=== PATIENT | female | born 1945 | race American Indian/Alaskan Native ===

== ENCOUNTER 2020-07-14 07:38 | Inpatient (IN) | payer OTHER, MEDICARE ==
--- NOTE | 2020-07-14 08:50 | XRay Report ---
CHEST 2 VIEWS INDICATION: SOB, chills/fever. COMPARISON: None FINDINGS: Support devices: None. Heart: Within normal limits. Lungs/pleura: Subtle focal bilateral airspace opacities are identified concerning for atypical pneumo glenroy or viral infection. No consolidation, pleural effusion or pneumothorax. Additional findings: None. IMPRESSION: Subtle bilateral airspace opacities as described. Signer Name: Davi Sanchez Jr, MD Signed: 07/14/2020 8:45 AM Workstation Name: [id number]
--- NOTE | 2020-07-14 09:05 | Emergency Department Report ---
ED General Adult HPI - General Chief complaint: Nausea/Vomiting/Diarrhea Stated complaint: DIARRHEA Time Seen by Provider: 07/14/20 08:53 Source: patient Mode of arrival: Ambulatory Limitations: No Limitations - History of Present Illness Initial comments: 74-year-old female with history of hypertension, diabetes, congestive heart failure presenting with chief complaint of a mild cough, shortness of breath especially with exertion, myalgias, loss of taste/smell, gradual onset 4 days ago after a known exposure to COVID-19. She denies chest pain, abdominal pain. She does report that she feels a little bit weak overall that she has attributed to the diarrhea that she is having. Denies any nausea or vomiting today but states she did have 1 day where she vomited a couple times. States that the cough is only slight. Symptoms are moderate in nature, no alleviating or exacerbating factors. - Related Data Allergies Allergy/AdvReac Type Severity Reaction Status Date / Time No Known Allergies Allergy Unverified 07/14/20 07:59 ED Review of Systems ROS: Stated complaint: DIARRHEA Other details as noted in HPI Comment: All other systems reviewed and negative Constitutional: see HPI. denies: fever ENT: as per HPI Respiratory: see HPI Gastrointestinal: as per HPI ED Past Medical Hx - Past Medical History Previous Medical History?: Yes Hx Hypertension: Yes Hx Congestive Heart Failure: Yes Hx Diabetes: Yes Additional medical history: Glaucoma - Social History Smoking Status: Never Smoker Substance Use Type: None ED Physical Exam - General Limitations: No Limitations General appearance: alert, in no apparent distress - Head Head exam: Present: atraumatic, normocephalic - Eye Eye exam: Present: normal appearance - ENT ENT exam: Present: mucous membranes moist - Neck Neck exam: Present: normal inspection - Respiratory Respiratory exam: Present: normal lung sounds bilaterally. Absent: respiratory distress, wheezes - Cardiovascular Cardiovascular Exam: Present: regular rate, normal rhythm. Absent: systolic murmur, diastolic murmur, rubs, gallop - GI/Abdominal GI/Abdominal exam: Present: soft, normal bowel sounds. Absent: distended, tenderness - Extremities Exam Extremities exam: Present: normal inspection - Back Exam Back exam: Present: normal inspection - Neurological Exam Neurological exam: Present: alert, oriented X3 - Psychiatric Psychiatric exam: Present: normal affect, normal mood - Skin Skin exam: Present: warm, dry, intact, normal color. Absent: rash ED Course Vital Signs 07/14/20 07/14/20 07:57 11:44 Temperature 98.9 F Pulse Rate 82 Respiratory 24 18 Rate Blood Pressure 150/76 O2 Sat by Pulse 92 97 Oximetry ED Medical Decision Making - Lab Data Result diagrams: 07/14/20 09:32 07/14/20 09:32 - Radiology Data Radiology results: report reviewed Faint bilateral infiltrates on chest x-ray - Medical Decision Making Patient presenting with symptoms of COVID-19 after known exposure including a mild cough, shortness of breath, diarrhea, loss of taste and smell. On exam she is well-appearing and in no distress, no increased work of breathing, heart sounds are normal, lungs are clear, abdomen benign, no significant lower extremity edema. Documented pulse ox in triage is 92%. We will recheck this and obtain ambulatory pulse ox to determine appropriate treatment. Chest x-ray was obtained showing mild bilateral infiltrates consistent with COVID-19 pneumonia. O2 does not go above 92% at rest, does desaturate into the upper 80s with ambulation. Will admit to internal medicine service, Dr. Gilbert - Differential Diagnosis Viral syndrome including COVID-19, pneumonia, respiratory failure Critical care attestation.: If time is entered above; I have spent that time in minutes in the direct care of this critically ill patient, excluding procedure time. ED Disposition Clinical Impression: Suspected COVID-19 virus infection, Hypoxia Disposition: OP ADMIT IP TO THIS HOSP Is pt being admited?: Yes Condition: Stable Referrals: PRIMARY CARE, [Referring] - 3-5 Days Time of Disposition: 11:54
[2020-07-14] MEDS ORDERED: cefTRIAXone/NS 1 GM/50 ML 1 GM/50 ML BAG IV ONE (09:16)
[2020-07-14] MEDS ORDERED: AZITHROMYCIN 500 MG in SODIUM CHLORIDE 0.9% 250ML 250 ML IV ONE (09:30)
[2020-07-14 11:11] LABS: Alanine Aminotransferase 70 units/L (7-56); BUN/Creatinine Ratio 12; Blood Urea Nitrogen 11 mg/dL (7-17); Calcium 10.1 mg/dL (8.4-10.2); Hemolysis Index 2
[2020-07-14 11:32] LABS: ABG Base Excess -2.3 mmol/L (-2.0-3.0); ABG Methemoglobin 0.5 % (0.0-1.5); ABG Oxygen Saturation 92.9 % (95.0-99.0); ABG PCO2 31.9 mm Hg; ABG PH 7.436 pH Units (7.350-7.450); ABG PO2 60.4 mm Hg (80.0-90.0)
[2020-07-14 11:35] LABS: Erythrocyte Sedimentation Rate 58 mm/Hr (0-20)
[2020-07-14 11:41] LABS: Basophils % (Auto) 0.4 % (0.0-1.8); Eosinophils % (Auto) 0.2 % (0.0-4.3); Hematocrit 39.5 % (30.3-42.9); Hemoglobin 13.6 gm/dl (10.1-14.3); Lymphocytes # (Auto) 0.9 K/mm3 (1.2-5.4); Lymphocytes % (Auto) 14.1 % (13.4-35.0); Mean Corpuscular HGB Conc 34 % (30-34); Mean Corpuscular Volume 82 fl (79-97); Monocytes # (Auto) 0.6 K/mm3 (0.0-0.8); Platelet Count 276 K/mm3 (140-440); Red Blood Count 4.83 M/mm3 (3.65-5.03); Red Cell Distribution Width 16.6 % (13.2-15.2)
--- NOTE | 2020-07-14 11:54 | History and Physical Report ---
History of Present Illness Chief complaint: i cant breathe History of present illness: 74 YO Female with Obesity Hypoventilation Syndrome, HTN, DM, CHF presents to ED for evaluation. Patient states that she has "not been feeling well" for the past 1 week with persistently worsening symptoms over the past 4 days. Patient states that she has experienced subjective fever, dry cough, shortness of breath, decreased exercise tolerance, nausea, multiple loose stools, loss of sense of smell, loss of sense of taste, fatigue, malaise, body aches, muscle aches. Patient transported to [facility] via private vehicle for further care and evaluation of the aforementioned symptoms. Patient seen and evaluated in the emergency department. All lab and imaging studies reviewed. Patient found to have a fever to 101.1 F, as well as a pulse oximetry of 87% with exertion on room air which is consistent with acute hypoxemic respiratory failure, tachycardia with heart rate of 128, and tachypneic with respiratory rate of 32. Patient underwent chest x-ray which revealed bilateral pneumonia. Patient admitted to medical floor and initiated on pneumonia protocol, sepsis protocol, as well as coronavirus protocol. Coronavirus PCR ordered in the emergency department and is pending at time of admission. Patient acknowledges subjective fever, but denies chest pain, palpitation, skin rash, recent ill contacts, trauma. Pt acknowledges known exposure to COVID-19 4 days ago. No medication listed at time of admission. No prior admission for review. Advanced care planning conducted in ED. Past History Past Medical History: diabetes, heart failure, hypertension Past Surgical History: No surgical history, Other (Reviewed) Social history: single. denies: smoking, alcohol abuse, prescription drug abuse Family history: diabetes, hypertension Medications and Allergies Allergies Allergy/AdvReac Type Severity Reaction Status Date / Time No Known Allergies Allergy Unverified 07/14/20 07:59 Review of Systems Constitutional: fever, fatigue, weakness, malaise, no weight loss, no chills Ears, nose, mouth and throat: no ear pain, no ear discharge, no tinnitis, no decreased hearing, no nose pain, no nasal congestion Breasts: no change in shape, no swelling, no mass Cardiovascular: no chest pain, no orthopnea, no palpitations, no rapid/irregular heart beat Respiratory: cough, shortness of breath, no excessive sputum, no hemoptysis Gastrointestinal: no abdominal pain, no nausea, no constipation, no change in bowel habits, no hematemesis (That that that is almost illegal) Genitourinary Female: no pelvic pain, no flank pain, no dysuria, no urinary frequency, no urgency Rectal: no pain, no incontinence Musculoskeletal: no shooting arm pain, no arm numbness/tingling, no low back pain, no shooting leg pain Integumentary: no rash, no pruritis, no redness, no sores Neurological: no head injury, no transient paralysis, no paralysis, no parathesias, no numbness, no tingling, no syncope Psychiatric: no anxiety, no sleep disturbances, no hypersomnia, no change in appetite, no change in libido, 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) Exam - Constitutional Vitals: Temp Pulse Resp BP Pulse Ox 98.9 F 82 18 150/76 97 07/14/20 07:57 07/14/20 07:57 07/14/20 11:44 07/14/20 07:57 07/14/20 11:44 Results - Labs CBC & Chem 7: 07/14/20 09:32 07/14/20 09:32 Labs: Abnormal lab results 07/14/20 07/14/20 07/14/20 Range/Units 09:32 09:32 09:32 RDW 16.6 H (13.2-15.2) % [place] % (Auto) 10.0 H (0.0-7.3) % Lymph # (Auto) 0.9 L (1.2-5.4) K/mm3 Seg Neutrophils % 75.3 H (40.0-70.0) % D-Dimer 1957.50 H (0-234) ng/mlDDU ABG pO2 (80.0-90.0) mm Hg ABG O2 Saturation (95.0-99.0) % ABG Base Excess (-2.0-3.0) mmol/L Oxyhemoglobin (95.0-99.0) % Glucose 128 H (65-100) mg/dL Ferritin (10.0-200.0) ng/mL AST 77 H (5-40) units/L ALT 70 H (7-56) units/L Lactate Dehydrogenase 385 H (91-180) units/L C-Reactive Protein 1.40 H (0.00-1.30) mg/dL Total Protein 8.4 H (6.3-8.2) g/dL 07/14/20 07/14/20 Range/Units 09:32 11:08 RDW (13.2-15.2) % [place] % (Auto) (0.0-7.3) % Lymph # (Auto) (1.2-5.4) K/mm3 Seg Neutrophils % (40.0-70.0) % D-Dimer (0-234) ng/mlDDU ABG pO2 60.4 L (80.0-90.0) mm Hg ABG O2 Saturation 92.9 L (95.0-99.0) % ABG Base Excess -2.3 L (-2.0-3.0) mmol/L Oxyhemoglobin 91.2 L (95.0-99.0) % Glucose (65-100) mg/dL Ferritin 333.3 H (10.0-200.0) ng/mL AST (5-40) units/L ALT (7-56) units/L Lactate Dehydrogenase (91-180) units/L C-Reactive Protein (0.00-1.30) mg/dL Total Protein (6.3-8.2) g/dL Assessment and Plan - Patient Problems (1) Sepsis Current Visit: Yes Status: Acute Qualifiers: Acute respiratory failure type: with hypoxia Plan to address problem: Sepsis protocol: Chest x-ray, CBC, CMP, urinalysis, IV antibiotic therapy, monitor urine output every shift, strict I's/O, maintain mean arterial pressure greater than or equal to 65, blood culture, serial lactic acid level. Hold IV fluid in accordance with sepsis protocol due to suspected coronavirus infection. Care is being taken not to initiate fluid overload with resultant flash pulmonary edema. (2) Suspected COVID-19 virus infection Current Visit: Yes Status: Acute Plan to address problem: Coronavirus protocol: Contact precautions, isolation precaution, coronavirus PCR ordered and pending at time of admission, prone positioning while in bed, IV steroid therapy, IV antibiotic therapy, supplemental oxygen. (3) Acute hypoxemic respiratory failure Current Visit: Yes Status: Acute Plan to address problem: Supplemental oxygen, pulse oximetry, chest x-ray, nebulizer therapy, prone positioning while in bed, pulmonary toilet. (4) Bilateral pneumonia Current Visit: Yes Status: Acute Plan to address problem: Pneumonia protocol: Chest x-ray, CBC, CMP, IV antibiotic therapy, supplemental oxygen, nebulizer therapy, blood culture. (5) CHF (congestive heart failure) Current Visit: Yes Status: Acute Qualifiers: Heart failure type: systolic Heart failure chronicity: acute on chronic Qualified Code(s): I50.23 - Acute on chronic systolic (congestive) heart failure Plan to address problem: Strict I/O, monitor urine output every shift, daily weight, afterload reduction, blood pressure control, supplemental oxygen, supportive care. (6) Hypertension Current Visit: Yes Status: Acute Qualifiers: Hypertension type: essential hypertension Qualified Code(s): I10 - Essential (primary) hypertension Plan to address problem: Monitor blood pressure every shift, continue medical management. (7) Obesity hypoventilation syndrome Current Visit: Yes Status: Acute Plan to address problem: Supplemental oxygen, pulse oximetry, noninvasive positive pressure ventilation as clinically indicated, outpatient pulmonary follow-up for sleep study. (8) DVT prophylaxis Current Visit: Yes Status: Acute Plan to address problem: SCD to bilateral lower extremities while in bed, prophylactic anticoagulation (9) Advance care planning Current Visit: Yes Status: Acute Plan to address problem: Disease education conducted, patient is full code, prognosis discussed, care plan discussed, patient knowledges understanding and agreement with care plan, +30 minutes.
[2020-07-14] MEDS ORDERED: ALBUTEROL 2.5 MG/3 ML NEBU IH PRN (12:33)
[2020-07-14] MEDS ORDERED: ONDANSETRON 4 MG/2 ML INJ IV PRN (12:33)
[2020-07-14] MEDS ORDERED: ACETAMINOPHEN 325 MG TAB PO PRN ×2 (12:33→14:34)
[2020-07-14] MEDS: HYDROcodone/HOMATROPINE 5-1.5MG /5 ML ORAL LIQD UNIT DOSE PO PRN (13:36)
[2020-07-14] MEDS ORDERED: HYDROcodone/HOMATROPINE 5-1.5MG /5 ML ORAL LIQD UNIT DOSE PO ONE (13:39)
[2020-07-14] MEDS: methylPREDNISolone Sod Succinate 40 MG/1 ML INJ IV SCH ×2 (14:22→22:02)
[2020-07-14] MEDS ORDERED: HYDROmorphone 1 MG/1 ML INJ IV PRN (14:34)
[2020-07-14] MEDS: FAMOTIDINE 20 MG TAB PO SCH (22:02)
[2020-07-14] MEDS: HEPARIN 5,000 UNIT/1 ML VIAL SUB-Q SCH (22:02)
[2020-07-15] MEDS: HYDROcodone/HOMATROPINE 5-1.5MG /5 ML ORAL LIQD UNIT DOSE PO PRN ×2 (00:03→23:20)
[2020-07-15] MEDS: methylPREDNISolone Sod Succinate 40 MG/1 ML INJ IV SCH ×3 (06:35→21:47)
[2020-07-15 07:27] LABS: Basophils % (Auto) 0.5 % (0.0-1.8); Hematocrit 39.7 % (30.3-42.9); Hemoglobin 13.1 gm/dl (10.1-14.3); Lymphocytes # (Auto) 0.8 K/mm3 (1.2-5.4); Lymphocytes % (Auto) 18.3 % (13.4-35.0); Mean Corpuscular HGB Conc 33 % (30-34); Mean Corpuscular Volume 85 fl (79-97); Monocytes # (Auto) 0.4 K/mm3 (0.0-0.8); Monocytes % (Auto) 8.3 % (0.0-7.3); Platelet Count 281 K/mm3 (140-440); Red Blood Count 4.65 M/mm3 (3.65-5.03); Red Cell Distribution Width 16.9 % (13.2-15.2)
--- NOTE | 2020-07-15 09:44 | Progress Note ---
Assessment and Plan Assessment and Plan - Patient Problems (1) Sepsis Current Visit: Yes Status: Acute Qualifiers: Acute respiratory failure type: with hypoxia Plan to address problem: Sepsis protocol: Chest x-ray, CBC, CMP, urinalysis, IV antibiotic therapy, monitor urine output every shift, strict I's/O, maintain mean arterial pressure greater than or equal to 65, blood culture, serial lactic acid level. Hold IV fluid in accordance with sepsis protocol due to suspected coronavirus infection. Care is being taken not to initiate fluid overload with resultant flash pulmonary edema. (2) COVID-19 virus infection Current Visit: Yes Status: Acute Plan to address problem: Coronavirus protocol: Contact precautions, isolation precaution, coronavirus PCR ordered and pending at time of admission, prone positioning while in bed, IV steroid therapy, IV antibiotic therapy, supplemental oxygen. ID consult for tomorrow (3) Acute hypoxemic respiratory failure Current Visit: Yes Status: Acute Plan to address problem: Supplemental oxygen, pulse oximetry, chest x-ray, nebulizer therapy, prone positioning while in bed, pulmonary toilet. (4) Bilateral pneumonia Current Visit: Yes Status: Acute Plan to address problem: Pneumonia protocol: Chest x-ray, CBC, CMP, IV antibiotic therapy, supplemental oxygen, nebulizer therapy, blood culture. (5) CHF (congestive heart failure) Current Visit: Yes Status: Acute Qualifiers: Heart failure type: systolic Heart failure chronicity: acute on chronic Qualified Code(s): I50.23 - Acute on chronic systolic (congestive) heart failure Plan to address problem: Strict I/O, monitor urine output every shift, daily weight, afterload reduction, blood pressure control, supplemental oxygen, supportive care. (6) Hypertension Current Visit: Yes Status: Acute Qualifiers: Hypertension type: essential hypertension Qualified Code(s): I10 - Essential (primary) hypertension Plan to address problem: Monitor blood pressure every shift, continue medical management. (7) Obesity hypoventilation syndrome Current Visit: Yes Status: Acute Plan to address problem: Supplemental oxygen, pulse oximetry, noninvasive positive pressure ventilation as clinically indicated, outpatient pulmonary follow-up for sleep study. (8) DVT prophylaxis Current Visit: Yes Status: Acute Plan to address problem: SCD to bilateral lower extremities while in bed, prophylactic anticoagulation (9) Advance care planning Current Visit: Yes Status: Acute Plan to address problem: Disease education conducted, patient is full code, prognosis discussed, care plan discussed, patient knowledges understanding and agreement with care plan, +30 minutes. Subjective Date of service: 07/15/20 Principal diagnosis: Covid pneumonia Interval history: 74 YO Female with Obesity Hypoventilation Syndrome, HTN, DM, CHF presents to ED for evaluation. Patient states that she has "not been feeling well" for the past 1 week with persistently worsening symptoms over the past 4 days. Patient states that she has experienced subjective fever, dry cough, shortness of breath, decreased exercise tolerance, nausea, multiple loose stools, loss of sense of smell, loss of sense of taste, fatigue, malaise, body aches, muscle aches. Patient transported to [facility] via private vehicle for further care and evaluation of the aforementioned symptoms. Patient seen and evaluated in the emergency department. All lab and imaging studies reviewed. Patient found to have a fever to 101.1 F, as well as a pulse oximetry of 87% with exertion on room air which is consistent with acute hypoxemic respiratory failure, t achycardia with heart rate of 128, and tachypneic with respiratory rate of 32. Patient underwent chest x-ray which revealed bilateral pneumonia. Patient admitted to medical floor and initiated on pneumonia protocol, sepsis protocol, as well as coronavirus protocol. Coronavirus PCR ordered in the emergency department and is pending at time of admission. Patient acknowledges subjective fever, but denies chest pain, palpitation, skin rash, recent ill contacts, trauma. Pt acknowledges known exposure to COVID-19 4 days ago. No medication listed at time of admission. No prior admission for review. Advanced care planning conducted in ED. 07/15/2020 Patient tested positive for Covid pneumonia Objective - Constitutional Vitals: Vital Signs - 12hr 07/14/20 07/14/20 07/15/20 21:50 22:00 04:50 Temperature 98.1 F 97.7 F Pulse Rate 89 94 H Respiratory 20 21 20 Rate Blood Pressure 153/71 172/90 O2 Sat by Pulse 93 95 91 Oximetry 07/15/20 08:30 Temperature Pulse Rate Respiratory Rate Blood Pressure O2 Sat by Pulse 98 Oximetry General appearance: Present: mild distress, well-nourished - EENT Eyes: PERRL, EOM intact ENT: hearing intact, clear oral mucosa Ears: bilateral: normal - Neck Neck: supple, normal ROM - Respiratory Respiratory effort: normal Respiratory: bilateral: CTA, rhonchi (Scattered rhonchi), wheezing - Breasts Breasts: normal - Cardiovascular Heart rate: 88 Rhythm: regular Heart Sounds: Present: S1 & S2. Absent: gallop, rub Extremities: pulses intact, No edema, normal color, Full ROM - Gastrointestinal General gastrointestinal: Present: soft, non-tender, non-distended, normal bowel sounds - Genitourinary Female genitourinary: normal - Integumentary Integumentary: clear, warm, dry - Musculoskeletal Musculoskeletal: 1, strength equal bilaterally - Neurologic Neurologic: moves all extremities - Psychiatric Psychiatric: memory intact, appropriate mood/affect, intact judgment & insight - Labs CBC & Chem 7: 07/15/20 05:34 07/14/20 09:32 Labs: Abnormal lab results 07/14/20 07/14/20 07/14/20 Range/Units 09:32 09:32 09:32 RDW 16.6 H (13.2-15.2) % [place] % (Auto) 10.0 H (0.0-7.3) % Lymph # (Auto) 0.9 L (1.2-5.4) K/mm3 Seg Neutrophils % 75.3 H (40.0-70.0) % D-Dimer 1957.50 H (0-234) ng/mlDDU ABG pO2 (80.0-90.0) mm Hg ABG O2 Saturation (95.0-99.0) % ABG Base Excess (-2.0-3.0) mmol/L Oxyhemoglobin (95.0-99.0) % Glucose 128 H (65-100) mg/dL POC Glucose (70-105) mg/dL Lactic Acid (0.7-2.0) mmol/L Ferritin (10.0-200.0) ng/mL AST 77 H (5-40) units/L ALT 70 H (7-56) units/L Lactate Dehydrogenase 385 H (91-180) units/L C-Reactive Protein 1.40 H (0.00-1.30) mg/dL Total Protein 8.4 H (6.3-8.2) g/dL 07/14/20 07/14/20 07/14/20 Range/Units 09:32 11:08 19:28 RDW (13.2-15.2) % [place] % (Auto) (0.0-7.3) % Lymph # (Auto) (1.2-5.4) K/mm3 Seg Neutrophils % (40.0-70.0) % D-Dimer (0-234) ng/mlDDU ABG pO2 60.4 L (80.0-90.0) mm Hg ABG O2 Saturation 92.9 L (95.0-99.0) % ABG Base Excess -2.3 L (-2.0-3.0) mmol/L Oxyhemoglobin 91.2 L (95.0-99.0) % Glucose (65-100) mg/dL POC Glucose (70-105) mg/dL Lactic Acid 2.90 H* (0.7-2.0) mmol/L Ferritin 333.3 H (10.0-200.0) ng/mL AST (5-40) units/L ALT (7-56) units/L Lactate Dehydrogenase (91-180) units/L C-Reactive Protein (0.00-1.30) mg/dL Total Protein (6.3-8.2) g/dL 07/14/20 07/15/20 07/15/20 Range/Units 22:15 05:34 07:34 RDW 16.9 H (13.2-15.2) % [place] % (Auto) 8.3 H (0.0-7.3) % Lymph # (Auto) 0.8 L (1.2-5.4) K/mm3 Seg Neutrophils % 72.9 H (40.0-70.0) % D-Dimer (0-234) ng/mlDDU ABG pO2 (80.0-90.0) mm Hg ABG O2 Saturation (95.0-99.0) % ABG Base Excess (-2.0-3.0) mmol/L Oxyhemoglobin (95.0-99.0) % Glucose (65-100) mg/dL POC Glucose 173 H 140 H (70-105) mg/dL Lactic Acid (0.7-2.0) mmol/L Ferritin (10.0-200.0) ng/mL AST (5-40) units/L ALT (7-56) units/L Lactate Dehydrogenase (91-180) units/L C-Reactive Protein (0.00-1.30) mg/dL Total Protein (6.3-8.2) g/dL
[2020-07-15] MEDS: HEPARIN 5,000 UNIT/1 ML VIAL SUB-Q SCH ×2 (09:56→21:46)
[2020-07-15] MEDS: FAMOTIDINE 20 MG TAB PO SCH ×2 (09:56→21:47)
[2020-07-15] MEDS: cefTRIAXone/NS 2 GM/100 ML 2 GM/100 ML BAG IV SCH (09:57)
[2020-07-15] MEDS ORDERED: NON-FORMULARY EACH (Metformin Hcl [Metformin] 1,000 MG Tablet) PO SCH (10:00)
[2020-07-15] MEDS ORDERED: TIMOLOL MALEATE OU SCH (10:00)
[2020-07-15] MEDS ORDERED: AZITHROMYCIN 500 MG in SODIUM CHLORIDE 0.9% 250ML 250 ML IV SCH (10:00)
[2020-07-15] MEDS: LOSARTAN 50 MG TAB PO SCH (10:08)
[2020-07-15] MEDS: FUROSEMIDE 40 MG TAB PO SCH (10:08)
[2020-07-15] MEDS: POTASSIUM CHLORIDE ER 10 MEQ TAB PO SCH (10:08)
[2020-07-15] MEDS: amLODIPine 5 MG TAB PO SCH ×2 (10:08→21:47)
[2020-07-15] MEDS: allopurinoL 300 MG TAB PO SCH ×3 (10:08→21:48)
[2020-07-15] MEDS: METOPROLOL TARTRATE 100 MG TAB PO SCH ×2 (10:09→21:48)
[2020-07-15] MEDS: metFORMIN 500 MG TAB PO SCH ×2 (10:17→16:48)
[2020-07-15] MEDS: TIMOLOL 0.5% OPHTH SOLN 5 ML OU SCH ×2 (12:36→21:49)
[2020-07-15] MEDS ORDERED: LATANOPROST 0.005% OPHTH SOLN 2.5 ML OU SCH ×2 (18:00)
[2020-07-15] MEDS: PRAVASTATIN 20 MG TAB PO SCH (21:46)
[2020-07-15] MEDS: LATANOPROST 0.005% OPHTH SOLN 2.5 ML OU SCH (21:49)
[2020-07-15] MEDS ORDERED: NON-FORMULARY EACH (Pravastatin Sodium [Pravastatin] 10 MG Tablet) PO SCH (22:00)
[2020-07-16] MEDS: dexAMETHasone 4 MG/ML VIAL IV SCH (01:27)
[2020-07-16] MEDS: ASCORBIC ACID 500 MG TAB PO SCH ×3 (01:27→22:10)
[2020-07-16] MEDS: methylPREDNISolone Sod Succinate 40 MG/1 ML INJ IV SCH (06:11)
[2020-07-16] MEDS: metFORMIN 500 MG TAB PO SCH ×2 (08:39→16:41)
[2020-07-16] MEDS ORDERED: AZITHROMYCIN 250 MG TAB PO SCH (10:00)
[2020-07-16] MEDS: cefTRIAXone/NS 2 GM/100 ML 2 GM/100 ML BAG IV SCH (10:16)
[2020-07-16] MEDS: METOPROLOL TARTRATE 100 MG TAB PO SCH ×2 (10:19→22:12)
[2020-07-16] MEDS: CHOLECALCIFEROL (VIT D3) 5,000 UNIT TAB PO SCH (10:19)
[2020-07-16] MEDS: LOSARTAN 50 MG TAB PO SCH (10:20)
[2020-07-16] MEDS: allopurinoL 300 MG TAB PO SCH ×2 (10:20→22:13)
[2020-07-16] MEDS: FAMOTIDINE 20 MG TAB PO SCH ×2 (10:20→22:13)
[2020-07-16] MEDS: FUROSEMIDE 40 MG TAB PO SCH (10:21)
[2020-07-16] MEDS: amLODIPine 5 MG TAB PO SCH ×2 (10:21→22:13)
[2020-07-16] MEDS: POTASSIUM CHLORIDE ER 10 MEQ TAB PO SCH (10:21)
[2020-07-16] MEDS: HEPARIN 5,000 UNIT/1 ML VIAL SUB-Q SCH ×2 (10:21→22:14)
[2020-07-16] MEDS: TIMOLOL 0.5% OPHTH SOLN 5 ML OU SCH ×2 (10:22→22:14)
--- NOTE | 2020-07-16 14:36 | Consultation ---
History of Present Illness - Reason for Consult Consult date: 07/16/20 COVID-19 Requesting physician: MIGUELITO GALVIN - History of Present Illness 75 years old female with obesity, hypertension, diabetes, CHF, admitted on 07/14/2020 secondary to a week history of subjective fever, dry cough, shortness of breath, dyspnea on exertion, nausea, multiple loose stools, loss of sense of smell and taste. Patient reports she was exposed to COVID-19 4 days before admission. Patient noted to have a fever of 101.1 and pulse oximetry down to 87% on exertion. On arrival, temperature 98.9, HR 82, RR 24, O2 sat 92%, BP 150/76. Initial WBC 6.1. D-dimer 1957. Ferritin 333. AST 77. ALT 70. Procalcitonin less than 0.05. Blood cultures no growth today. Chest x-ray shows bilateral airspace disease. Patient is currently on 2 L nasal cannula. Review of Systems: reviewed ED and H&P notes. Deferred to prevent COVID-19 transmission. Past History Past Medical History: diabetes, heart failure, hypertension Past Surgical History: No surgical history, Other (Reviewed) Social history: single. denies: smoking, alcohol abuse, prescription drug abuse Family history: diabetes, hypertension Medications and Allergies Allergies Allergy/AdvReac Type Severity Reaction Status Date / Time No Known Allergies Allergy Unverified 07/14/20 07:59 Home Medications Medication Instructions Recorded Confirmed Last Taken Type Amlodipine Besylate [Norvasc] 5 mg PO BID 07/14/20 07/14/20 Unknown History Furosemide [Lasix TAB] 40 mg PO QDAY 07/14/20 07/14/20 Unknown History Latanoprost 0.005% [Xalatan 0.005%] 1 drop OP QPM 07/14/20 07/14/20 Unknown History Losartan [Cozaar] 50 mg PO QDAY 07/14/20 07/14/20 Unknown History Metformin HCl [metFORMIN] 1,000 mg PO BID 07/14/20 07/14/20 Unknown History Metoprolol Tartrate [Lopressor] 100 mg PO BID 07/14/20 07/14/20 Unknown History Potassium Chloride [K-Dur] 10 meq PO QDAY 07/14/20 07/14/20 Unknown History Pravastatin Sodium [Pravastatin] 20 mg PO QHS 07/14/20 07/14/20 07/14/20 History allopurinoL [Zyloprim] 300 mg PO QDAY 07/14/20 07/14/20 Unknown History timoloL maleate [Timolol Maleate] 1 drop OU BID 07/14/20 07/14/20 Unknown History Active Meds: Active Medications Acetaminophen (Acetaminophen 325 Mg Tab) 650 mg PO Q6H PRN PRN Reason: Pain, Mild (1-3) Albuterol (Albuterol 2.5 Mg/3 Ml Nebu) 2.5 mg IH Q4HRT PRN PRN Reason: Shortness Of Breath Allopurinol (Allopurinol 300 Mg Tab) 300 mg PO QHS [facility] Amlodipine Besylate (Amlodipine 5 Mg Tab) 5 mg PO BID [facility] Last Admin: 07/16/20 10:21 Dose: 5 mg Documented by: Ascorbic Acid (Ascorbic Acid 500 Mg Tab) 1,000 mg PO BID [facility] Last Admin: 07/16/20 10:21 Dose: 1,000 mg Documented by: Azithromycin (Azithromycin 250 Mg Tab) 500 mg PO QDAY [facility] Stop: 07/18/20 10:01 Last Admin: 07/16/20 10:19 Dose: 500 mg Documented by: Cholecalciferol (Cholecalciferol (Vit D3) 5,000 Unit Tab) 5,000 unit PO DAILY S Last Admin: 07/16/20 10:19 Dose: 5,000 unit Documented by: Dexamethasone (Dexamethasone 4 Mg/Ml Vial) 8 mg IV Q24H [facility] Last Admin: 07/16/20 01:27 Dose: 8 mg Documented by: Famotidine (Famotidine 20 Mg Tab) 20 mg PO BID [facility] Last Admin: 07/16/20 10:20 Dose: 20 mg Documented by: Furosemide (Furosemide 40 Mg Tab) 40 mg PO QDAY [facility] Last Admin: 07/16/20 10:21 Dose: 40 mg Documented by: Heparin Sodium (Porcine) (Heparin 5,000 Unit/1 Ml Vial) 5,000 unit SUB-Q Q12HR [facility] Last Admin: 07/16/20 10:21 Dose: 5,000 unit Documented by: Hydrocodone Bit/Homatropine Methylb (Hydrocodone/Homatropine 5-1.5mg /5 Ml Oral Liqd Unit Dose) 10 ml PO TID PRN PRN Reason: Cough Last Admin: 07/15/20 23:20 Dose: 10 ml Documented by: Hydromorphone HCl (Hydromorphone 1 Mg/1 Ml Inj) 0.25 mg IV Q4H PRN PRN Reason: Pain, Moderate (4-6) Ceftriaxone Sodium (Rocephin/Ns 2 Gm/100 Ml) 2 gm in 100 mls @ 200 mls/hr IV Q24H [facility]; Protocol Last Admin: 07/16/20 10:16 Dose: 200 mls/hr Documented by: Latanoprost (Latanoprost 0.005% Ophth Soln 2.5 Ml) 1 drops OU QHS [facility] Last Admin: 07/15/20 21:49 Dose: 1 drops Documented by: Losartan Potassium (Losartan 50 Mg Tab) 50 mg PO QDAY [facility] Last Admin: 07/16/20 10:20 Dose: 50 mg Documented by: Metformin HCl (Metformin 500 Mg Tab) 1,000 mg PO BIDDIAB [facility] Last Admin: 07/16/20 08:39 Dose: 1,000 mg Documented by: Metoprolol Tartrate (Metoprolol Tartrate 100 Mg Tab) 100 mg PO BID [facility] Last Admin: 07/16/20 10:19 Dose: 100 mg Documented by: Ondansetron HCl (Ondansetron 4 Mg/2 Ml Inj) 4 mg IV Q8H PRN PRN Reason: Nausea And Vomiting Last Admin: 07/15/20 23:21 Dose: 4 mg Documented by: Potassium Chloride (Potassium Chloride Er 10 Meq Tab) 10 meq PO QDAY [facility] Last Admin: 07/16/20 10:21 Dose: 10 meq Documented by: Pravastatin Sodium (Pravastatin 20 Mg Tab) 20 mg PO QHS [facility] Last Admin: 07/15/20 21:46 Dose: 20 mg Documented by: Sodium Chloride (Sodium Chloride 0.9% 10 Ml Flush Syringe) 10 ml IV BID [facility] Last Admin: 07/16/20 10:22 Dose: 10 ml Documented by: Sodium Chloride (Sodium Chloride 0.9% 10 Ml Flush Syringe) 10 ml IV PRN PRN PRN Reason: LINE FLUSH Timolol Maleate (Timolol 0.5% Ophth Soln 5 Ml) 1 drops OU BID [facility] Last Admin: 07/16/20 10:22 Dose: 1 drops Documented by: Physical Examination - Physical Exam Narrative exam: Physical Exam: reviewed ED and hospitalist notes. Deferred to prevent COVID-19 transmission. - Constitutional Vitals: Vital Signs Temp Pulse Resp BP Pulse Ox 97.6 F 78 18 139/70 92 07/16/20 11:02 07/16/20 11:02 07/16/20 11:02 07/16/20 11:02 07/16/20 11:02 Temperature -Last 24 Hours Temperature 97.6 F Temperature 98.1 F Temperature 97.4 F Temperature 98.1 F Results - Labs CBC & Chem 7: 07/15/20 05:34 07/14/20 09:32 Labs: Abnormal lab results 07/15/20 07/15/20 07/15/20 Range/Units 15:54 22:00 Unknown POC Glucose 139 H 129 H (70-105) mg/dL Coronavirus (PCR) Positive A (Negative) 07/16/20 07/16/20 Range/Units 06:33 11:02 POC Glucose 130 H 215 H (70-105) mg/dL Coronavirus (PCR) (Negative) Assessment and Plan Cultures: Blood culture pending SARS CoV2 PCR positive Assessment: 75 years old female with obesity, hypertension, diabetes, CHF, admitted on 07/14/2020 secondary to a week history of subjective fever, dry cough, shortness of breath, dyspnea on exertion, nausea, multiple loose stools, loss of sense of smell and taste: #Severe sepsis: Present on admission initial fever 101, noted hypoxia, elevated lactate. Likely due to bilateral pneumonia. #Severe COVID pneumonia: Chest x-ray with bilateral pneumonia. Inflammatory markers elevated. D-dimer 1957. Ferritin 333. #Acute hypoxemic respiratory failure: Sats dropped to 91%, and 87% on exertion, patient currently on 2 L nasal cannula. #Elevated LFTs: from COVID Recommendations: -Start Dexamethasone 6 mg IV/PO daily for 10 days -Start Remdesivir total 5 days -Monitor inflammatory markers - ferritin, Ddimer, CRP, LDH -Stop ceftriaxone and azithromycin, procalcitonin <0.25 ng/mL -Monitor liver function test on Remdesivir -Continue anticoagulation per System Protocol -Prone positioning as possible -Obtain SARS CoV-2 IgG to determine if patient is a candidate for COVID convalescent plasma All laboratory, cultures and imaging were reviewed. Discussed with attending. Will follow Anneliese Zurita MD Infectious Diseases [employer] [facility] ([facility] M [phone] O [phone]
[2020-07-16] MEDS ORDERED: REMDESIVIR 200 MG in SODIUM CHLORIDE 0.9% 250ML 250 ML IV ONE (16:00)
[2020-07-16] MEDS ORDERED: REMDESIVIR 100 MG VIAL IV ONE (16:00)
[2020-07-16] MEDS: HYDROcodone/HOMATROPINE 5-1.5MG /5 ML ORAL LIQD UNIT DOSE PO PRN ×2 (16:41→22:12)
[2020-07-16] MEDS: SODIUM CHLORIDE 0.9% 50 ML IVPB IV SCH ×2 (16:44→22:29)
[2020-07-16] MEDS ORDERED: LOPERAMIDE 2 MG CAP PO PRN (19:51)
[2020-07-16] MEDS: PRAVASTATIN 20 MG TAB PO SCH (22:13)
[2020-07-16] MEDS: LATANOPROST 0.005% OPHTH SOLN 2.5 ML OU SCH (22:15)
[2020-07-17] MEDS: dexAMETHasone 4 MG/ML VIAL IV SCH (00:41)
--- NOTE | 2020-07-17 00:49 | Progress Note ---
Assessment and Plan Assessment and Plan - Patient Problems (1) Sepsis Current Visit: Yes Status: Acute Qualifiers: Acute respiratory failure type: with hypoxia Plan to address problem: Sepsis protocol: Chest x-ray, CBC, CMP, urinalysis, IV antibiotic therapy, monitor urine output every shift, strict I's/O, maintain mean arterial pressure greater than or equal to 65, blood culture, serial lactic acid level. Hold IV fluid in accordance with sepsis protocol due to suspected coronavirus infection. Care is being taken not to initiate fluid overload with resultant flash pulmonary edema. (2) COVID-19 virus infection Current Visit: Yes Status: Acute Plan to address problem: Coronavirus protocol: Contact precautions, isolation precaution, coronavirus PCR ordered and pending at time of admission, prone positioning while in bed, IV steroid therapy, IV antibiotic therapy, supplemental oxygen. ID consult for tomorrow (3) Acute hypoxemic respiratory failure Current Visit: Yes Status: Acute Plan to address problem: Supplemental oxygen, pulse oximetry, chest x-ray, nebulizer therapy, prone positioning while in bed, pulmonary toilet. (4) Bilateral pneumonia Current Visit: Yes Status: Acute Plan to address problem: Pneumonia protocol: Chest x-ray, CBC, CMP, IV antibiotic therapy, supplemental oxygen, nebulizer therapy, blood culture. (5) CHF (congestive heart failure) Current Visit: Yes Status: Acute Qualifiers: Heart failure type: systolic Heart failure chronicity: acute on chronic Qualified Code(s): I50.23 - Acute on chronic systolic (congestive) heart failure Plan to address problem: Strict I/O, monitor urine output every shift, daily weight, afterload reduction, blood pressure control, supplemental oxygen, supportive care. (6) Hypertension Current Visit: Yes Status: Acute Qualifiers: Hypertension type: essential hypertension Qualified Code(s): I10 - Essential (primary) hypertension Plan to address problem: Monitor blood pressure every shift, continue medical management. (7) Obesity hypoventilation syndrome Current Visit: Yes Status: Acute Plan to address problem: Supplemental oxygen, pulse oximetry, noninvasive positive pressure ventilation as clinically indicated, outpatient pulmonary follow-up for sleep study. (8) DVT prophylaxis Current Visit: Yes Status: Acute Plan to address problem: SCD to bilateral lower extremities while in bed, prophylactic anticoagulation (9) Advance care planning Current Visit: Yes Status: Acute Plan to address problem: Disease education conducted, patient is full code, prognosis discussed, care plan discussed, patient knowledges understanding and agreement with care plan, +30 minutes. Subjective Date of service: 07/16/20 Principal diagnosis: Covid pneumonia Interval history: 74 YO Female with Obesity Hypoventilation Syndrome, HTN, DM, CHF presents to ED for evaluation. Patient states that she has "not been feeling well" for the past 1 week with persistently worsening symptoms over the past 4 days. Patient states that she has experienced subjective fever, dry cough, shortness of breath, decreased exercise tolerance, nausea, multiple loose stools, loss of sense of smell, loss of sense of taste, fatigue, malaise, body aches, muscle aches. Patient transported to [facility] via private vehicle for further care and evaluation of the aforementioned symptoms. Patient seen and evaluated in the emergency department. All lab and imaging studies reviewed. Patient found to have a fever to 101.1 F, as well as a pulse oximetry of 87% with exertion on room air which is consistent with acute hypoxemic respiratory failure, t achycardia with heart rate of 128, and tachypneic with respiratory rate of 32. Patient underwent chest x-ray which revealed bilateral pneumonia. Patient admitted to medical floor and initiated on pneumonia protocol, sepsis protocol, as well as coronavirus protocol. Coronavirus PCR ordered in the emergency department and is pending at time of admission. Patient acknowledges subjective fever, but denies chest pain, palpitation, skin rash, recent ill contacts, trauma. Pt acknowledges known exposure to COVID-19 4 days ago. No medication listed at time of admission. No prior admission for review. Advanced care planning conducted in ED. 07/15/2020 Patient tested positive for Covid pneumonia 07/16/2020 Patient on high flow oxygen Objective - Constitutional Vitals: Vital Signs - 12hr 07/16/20 07/16/20 07/16/20 15:46 21:21 22:00 Temperature 98.5 F 99.0 F Pulse Rate 77 84 Respiratory 18 16 Rate Blood Pressure 138/68 155/71 O2 Sat by Pulse 89 96 93 Oximetry 07/16/20 07/16/20 22:12 22:13 Temperature Pulse Rate 84 84 Respiratory Rate Blood Pressure 155/71 155/71 O2 Sat by Pulse Oximetry General appearance: Present: no acute distress, mild distress, well-nourished - EENT Eyes: PERRL, EOM intact ENT: hearing intact, clear oral mucosa Ears: bilateral: normal - Neck Neck: supple, normal ROM - Respiratory Respiratory effort: normal Respiratory: bilateral: CTA - Breasts Breasts: normal - Cardiovascular Rhythm: regular Heart Sounds: Present: S1 & S2. Absent: gallop, rub Extremities: pulses intact, No edema, normal color, Full ROM - Gastrointestinal General gastrointestinal: Present: soft, non-tender, non-distended, normal bowel sounds - Genitourinary Female genitourinary: normal - Integumentary Integumentary: clear, warm, dry - Musculoskeletal Musculoskeletal: 1, strength equal bilaterally - Neurologic Neurologic: moves all extremities - Psychiatric Psychiatric: memory intact, appropriate mood/affect, intact judgment & insight - Labs CBC & Chem 7: 07/15/20 05:34 07/14/20 09:32 Labs: Abnormal lab results 07/16/20 07/16/20 07/16/20 Range/Units 06:33 11:02 15:43 POC Glucose 130 H 215 H 159 H (70-105) mg/dL SARS-CoV-2 IgG Ab (NonReactive) 07/16/20 07/16/20 Range/Units 18:55 21:20 POC Glucose 125 H (70-105) mg/dL SARS-CoV-2 IgG Ab Reactive A (NonReactive)
[2020-07-17] MEDS: metFORMIN 500 MG TAB PO SCH ×2 (08:36→17:12)
[2020-07-17] MEDS: HYDROcodone/HOMATROPINE 5-1.5MG /5 ML ORAL LIQD UNIT DOSE PO PRN ×2 (08:36→19:16)
--- NOTE | 2020-07-17 09:38 | Progress Note ---
Assessment and Plan Cultures: Blood culture pending SARS CoV2 PCR positive SARS CoV2 IgG positive Assessment: 75 years old female with obesity, hypertension, diabetes, CHF, admitted on 07/14/2020 secondary to a week history of subjective fever, dry cough, shortness of breath, dyspnea on exertion, nausea, multiple loose stools, loss of sense of smell and taste: #Severe sepsis: Present on admission initial fever 101, noted hypoxia, elevated lactate. Likely due to bilateral pneumonia. #Severe COVID pneumonia: Chest x-ray with bilateral pneumonia. Inflammatory markers elevated. D-dimer 1957. Ferritin 333. #Acute hypoxemic respiratory failure: Sats dropped to 91%, and 87% on exertion, patient currently on 2 L nasal cannula. #Elevated LFTs: from COVID Recommendations: -Dexamethasone 6 mg IV/PO daily for 10 days D2 of 10 -Remdesivir total 5 days D2 of 5 -Monitor inflammatory markers - ferritin, Ddimer, CRP, LDH, LFTs, ordered today -Monitor liver function test on Remdesivir -Continue anticoagulation per System Protocol -Prone positioning as possible -SARS CoV-2 IgG positive pt is NOT a candidate for COVID convalescent plasma All laboratory, cultures and imaging were reviewed. Discussed with attending. Will follow Anneliese Zurita MD Infectious Diseases [employer] [facility] M [phone] O [phone] Subjective Principal diagnosis: Covid pneumonia Objective - Constitutional Vitals: Vital Signs Temp Pulse Resp BP Pulse Ox 99.0 F 73 20 143/68 92 07/17/20 04:51 07/17/20 04:51 07/17/20 04:51 07/17/20 04:51 07/17/20 08:40 Temperature -Last 24 Hours Temperature 99.0 F Temperature 99.0 F Temperature 98.5 F Temperature 97.6 F - Labs CBC & Chem 7: 07/15/20 05:34 07/14/20 09:32 Labs: Abnormal lab results 07/16/20 07/16/20 07/16/20 Range/Units 11:02 15:43 18:55 POC Glucose 215 H 159 H (70-105) mg/dL SARS-CoV-2 IgG Ab Reactive A (NonReactive) 07/16/20 07/17/20 Range/Units 21:20 08:03 POC Glucose 125 H 141 H (70-105) mg/dL SARS-CoV-2 IgG Ab (NonReactive)
[2020-07-17] MEDS: LOSARTAN 50 MG TAB PO SCH (09:50)
[2020-07-17] MEDS: METOPROLOL TARTRATE 100 MG TAB PO SCH ×2 (09:51→21:12)
[2020-07-17] MEDS: TIMOLOL 0.5% OPHTH SOLN 5 ML OU SCH ×2 (09:51→21:04)
[2020-07-17] MEDS: ASCORBIC ACID 500 MG TAB PO SCH ×2 (09:51→21:01)
[2020-07-17] MEDS: POTASSIUM CHLORIDE ER 10 MEQ TAB PO SCH (09:51)
[2020-07-17] MEDS: FUROSEMIDE 40 MG TAB PO SCH (09:51)
[2020-07-17] MEDS: CHOLECALCIFEROL (VIT D3) 5,000 UNIT TAB PO SCH (09:51)
[2020-07-17] MEDS: FAMOTIDINE 20 MG TAB PO SCH ×2 (09:51→21:01)
[2020-07-17] MEDS: amLODIPine 5 MG TAB PO SCH ×2 (09:51→21:13)
[2020-07-17] MEDS: HEPARIN 5,000 UNIT/1 ML VIAL SUB-Q SCH ×2 (09:52→21:14)
[2020-07-17 15:34] LABS: Alanine Aminotransferase 81 units/L (7-56); Albumin 3.8 g/dL (3.9-5); C-Reactive Protein 0.4 mg/dL (0.00-1.30)
[2020-07-17 15:36] LABS: Bilirubin,Direct < 0.2 mg/dL (0-0.2)
--- NOTE | 2020-07-17 19:36 | Progress Note ---
Assessment and Plan Assessment and Plan - Patient Problems (1) Sepsis Current Visit: Yes Status: Acute Qualifiers: Acute respiratory failure type: with hypoxia Plan to address problem: Sepsis protocol: Chest x-ray, CBC, CMP, urinalysis, IV antibiotic therapy, monitor urine output every shift, strict I's/O, maintain mean arterial pressure greater than or equal to 65, blood culture, serial lactic acid level. Hold IV fluid in accordance with sepsis protocol due to suspected coronavirus infection. Care is being taken not to initiate fluid overload with resultant flash pulmonary edema. (2) COVID-19 virus infection Current Visit: Yes Status: Acute Plan to address problem: Slightly hypoxic on ambulation Acute hypoxemic respiratory failure: Sats dropped to 91%, and 87% on exertion, patient currently on 2 L nasal cannula. (3) Acute hypoxemic respiratory failure Current Visit: Yes Status: Acute Plan to address problem: Sats dropped to 87% on exertion patient currently on 2 L nasal cannula oxygen (4) Bilateral pneumonia Current Visit: Yes Status: Acute Plan to address problem: Pneumonia protocol: Chest x-ray, CBC, CMP, IV antibiotic therapy, supplemental oxygen, nebulizer therapy, blood culture. (5) CHF (congestive heart failure) Current Visit: Yes Status: Acute Qualifiers: Heart failure type: systolic Heart failure chronicity: acute on chronic Qualified Code(s): I50.23 - Acute on chronic systolic (congestive) heart failure Plan to address problem: Strict I/O, monitor urine output every shift, daily weight, afterload reduction, blood pressure control, supplemental oxygen, supportive care. (6) Hypertension Current Visit: Yes Status: Acute Qualifiers: Hypertension type: essential hypertension Qualified Code(s): I10 - Essential (primary) hypertension Plan to address problem: Monitor blood pressure every shift, continue medical management. (7) Obesity hypoventilation syndrome Current Visit: Yes Status: Acute Plan to address problem: Supplemental oxygen, pulse oximetry, noninvasive positive pressure ventilation as clinically indicated, outpatient pulmonary follow-up for sleep study. (8) DVT prophylaxis Current Visit: Yes Status: Acute Plan to address problem: SCD to bilateral lower extremities while in bed, prophylactic anticoagulation (9) Advance care planning Current Visit: Yes Status: Acute Plan to address problem: Disease education conducted, patient is full code, prognosis discussed, care plan discussed, patient knowledges understanding and agreement with care plan, +30 minutes. Subjective Date of service: 07/17/20 Principal diagnosis: Covid pneumonia Interval history: 74 YO Female with Obesity Hypoventilation Syndrome, HTN, DM, CHF presents to ED for evaluation. Patient states that she has "not been feeling well" for the pa st 1 week with persistently worsening symptoms over the past 4 days. Patient states that she has experienced subjective fever, dry cough, shortness of breath, decreased exercise tolerance, nausea, multiple loose stools, loss of sense of smell, loss of sense of taste, fatigue, malaise, body aches, muscle aches. Patient transported to [facility] via private vehicle for further care and evaluation of the aforementioned symptoms. Patient seen and evaluated in the emergency department. All lab and imaging studies reviewed. Patient found to have a fever to 101.1 F, as well as a pulse oximetry of 87% with exertion on room air which is consistent with acute hypoxemic respiratory failure, tachycardia with heart rate of 128, and tachypneic with respiratory rate of 32. Patient underwent chest x-ray which revealed bilateral pneumonia. Patient admitted to medical floor and initiated on pneumonia protocol, sepsis protocol, as well as coronavirus protocol. Coronavirus PCR ordered in the emergency d epartment and is pending at time of admission. Patient acknowledges subjective fever, but denies chest pain, palpitation, skin rash, recent ill contacts, trauma. Pt acknowledges known exposure to COVID-19 4 days ago. No medication listed at time of admission. No prior admission for review. Advanced care planning conducted in ED. 07/15/2020 Patient tested positive for Covid pneumonia 07/16/2020 Patient on high flow oxygen 07/17/2020 Patient on 2 L nasal cannula oxygen Desaturating to 87% on ambulation May arrange for home oxygen and discharge tomorrow Objective - Constitutional Vitals: Vital Signs - 12hr 07/17/20 07/17/20 07/17/20 08:40 11:51 17:01 Temperature 98.4 F 98.1 F Pulse Rate 70 67 Respiratory 24 22 Rate Blood Pressure 139/64 140/64 O2 Sat by Pulse 92 94 94 Oximetry General appearance: Present: no acute distress, well-nourished - EENT Eyes: PERRL, EOM intact ENT: hearing intact, clear oral mucosa Ears: bilateral: normal - Neck Neck: supple, normal ROM - Respiratory Respiratory effort: normal Respiratory: bilateral: CTA - Breasts Breasts: normal - Cardiovascular Heart rate: 78 Rhythm: regular Heart Sounds: Present: S1 & S2. Absent: gallop, rub Extremities: pulses intact, No edema, normal color, Full ROM - Gastrointestinal General gastrointestinal: Present: soft, non-tender, non-distended, normal bowel sounds - Genitourinary Female genitourinary: normal - Integumentary Integumentary: clear, warm, dry - Musculoskeletal Musculoskeletal: 1, strength equal bilaterally - Neurologic Neurologic: moves all extremities - Psychiatric Psychiatric: memory intact, appropriate mood/affect, intact judgment & insight - Labs CBC & Chem 7: 07/15/20 05:34 07/14/20 09:32 Labs: Abnormal lab results 07/16/20 07/16/20 07/17/20 Range/Units 18:55 21:20 08:03 D-Dimer (0-234) ng/mlDDU POC Glucose 125 H 141 H (70-105) mg/dL Ferritin (10.0-200.0) ng/mL AST (5-40) units/L ALT (7-56) units/L Lactate Dehydrogenase (91-180) units/L Albumin (3.9-5) g/dL SARS-CoV-2 IgG Ab Reactive A (NonReactive) 07/17/20 07/17/20 07/17/20 Range/Units 11:49 14:06 14:06 D-Dimer 1468.61 H (0-234) ng/mlDDU POC Glucose 169 H (70-105) mg/dL Ferritin 286.6 H (10.0-200.0) ng/mL AST (5-40) units/L ALT (7-56) units/L Lactate Dehydrogenase (91-180) units/L Albumin (3.9-5) g/dL SARS-CoV-2 IgG Ab (NonReactive) 07/17/20 07/17/20 07/17/20 Range/Units 14:06 14:06 16:59 D-Dimer (0-234) ng/mlDDU POC Glucose 149 H (70-105) mg/dL Ferritin (10.0-200.0) ng/mL AST 58 H (5-40) units/L ALT 81 H (7-56) units/L Lactate Dehydrogenase 333 H (91-180) units/L Albumin 3.8 L (3.9-5) g/dL SARS-CoV-2 IgG Ab (NonReactive)
[2020-07-17] MEDS: SODIUM CHLORIDE 0.9% 50 ML IVPB IV SCH (21:00)
[2020-07-17] MEDS: REMDESIVIR 100 MG in SODIUM CHLORIDE 0.9% 250ML 250 ML IV SCH (21:00)
[2020-07-17] MEDS: allopurinoL 300 MG TAB PO SCH (21:01)
[2020-07-17] MEDS: PRAVASTATIN 20 MG TAB PO SCH (21:02)
[2020-07-17] MEDS: LATANOPROST 0.005% OPHTH SOLN 2.5 ML OU SCH (21:04)
[2020-07-18] MEDS: dexAMETHasone 4 MG/ML VIAL IV SCH ×2 (01:50→23:15)
[2020-07-18] MEDS: metFORMIN 500 MG TAB PO SCH ×2 (08:42→17:05)
[2020-07-18] MEDS: HEPARIN 5,000 UNIT/1 ML VIAL SUB-Q SCH ×2 (10:03→23:15)
[2020-07-18] MEDS: ASCORBIC ACID 500 MG TAB PO SCH ×2 (10:03→23:10)
[2020-07-18] MEDS: FAMOTIDINE 20 MG TAB PO SCH ×2 (10:03→23:09)
[2020-07-18] MEDS: amLODIPine 5 MG TAB PO SCH (10:03)
[2020-07-18] MEDS: POTASSIUM CHLORIDE ER 10 MEQ TAB PO SCH (10:03)
[2020-07-18] MEDS: FUROSEMIDE 40 MG TAB PO SCH (10:03)
[2020-07-18] MEDS: METOPROLOL TARTRATE 100 MG TAB PO SCH ×2 (10:03→23:09)
[2020-07-18] MEDS: LOSARTAN 50 MG TAB PO SCH (10:03)
[2020-07-18] MEDS: CHOLECALCIFEROL (VIT D3) 5,000 UNIT TAB PO SCH (10:03)
[2020-07-18] MEDS: TIMOLOL 0.5% OPHTH SOLN 5 ML OU SCH ×2 (10:05→23:19)
--- NOTE | 2020-07-18 14:01 | Progress Note ---
Assessment and Plan Cultures: Blood culture pending SARS CoV2 PCR positive SARS CoV2 IgG positive Assessment: 75 years old female with obesity, hypertension, diabetes, CHF, admitted on 07/14/2020 secondary to a week history of subjective fever, dry cough, shortness of breath, dyspnea on exertion, nausea, multiple loose stools, loss of sense of smell and taste: #Severe sepsis: Improving. Likely due to bilateral pneumonia. #Severe COVID pneumonia: Chest x-ray with bilateral pneumonia. Inflammatory markers elevated. D-dimer 1957. Ferritin 333. #Acute hypoxemic respiratory failure: Sats dropped to 91%, and 87% on exertion, remains on 2 L. #Elevated LFTs: from COVID, improving Recommendations: -Dexamethasone 6 mg IV/PO daily for 10 days D3 of 10 -Remdesivir total 5 days D3 of 5 -Monitor inflammatory markers - ferritin, Ddimer, CRP, LDH, LFTs -Monitor liver function test on Remdesivir -Continue anticoagulation per System Protocol -Prone positioning as possible -SARS CoV-2 IgG positive pt is NOT a candidate for COVID convalescent plasma All laboratory, cultures and imaging were reviewed. Discussed with attending. Dr. Dyer rounding this weekend Will follow Anneliese Zurita MD Infectious Diseases Video Game [employer] [facility] M [phone] O [phone] Subjective Date of service: 07/18/20 Principal diagnosis: Covid pneumonia Interval history: Remains on 2 L nasal cannula, O2 sats over 95%, no fever Objective - Exam Narrative Exam: Physical Exam: reviewed ED and hospitalist notes. Deferred to prevent COVID-19 transmission. - Constitutional Vitals: Vital Signs Temp Pulse Resp BP Pulse Ox 98.2 F 76 18 169/79 96 07/18/20 04:55 07/18/20 04:55 07/18/20 04:55 07/18/20 04:55 07/18/20 04:55 Temperature -Last 24 Hours Temperature 98.2 F Temperature 97.6 F Temperature 97.8 F Temperature 98.1 F - Labs CBC & Chem 7: 07/15/20 05:34 07/14/20 09:32 Labs: Abnormal lab results 07/17/20 07/17/20 07/17/20 Range/Units 14:06 14:06 14:06 D-Dimer 1468.61 H (0-234) ng/mlDDU POC Glucose (70-105) mg/dL Ferritin 286.6 H (10.0-200.0) ng/mL AST (5-40) units/L ALT (7-56) units/L Lactate Dehydrogenase 333 H (91-180) units/L Albumin (3.9-5) g/dL 07/17/20 07/17/20 07/17/20 Range/Units 14:06 16:59 21:52 D-Dimer (0-234) ng/mlDDU POC Glucose 149 H 145 H (70-105) mg/dL Ferritin (10.0-200.0) ng/mL AST 58 H (5-40) units/L ALT 81 H (7-56) units/L Lactate Dehydrogenase (91-180) units/L Albumin 3.8 L (3.9-5) g/dL 07/18/20 07/18/20 Range/Units 07:59 12:53 D-Dimer (0-234) ng/mlDDU POC Glucose 174 H 164 H (70-105) mg/dL Ferritin (10.0-200.0) ng/mL AST (5-40) units/L ALT (7-56) units/L Lactate Dehydrogenase (91-180) units/L Albumin (3.9-5) g/dL
[2020-07-18] MEDS: HYDROcodone/HOMATROPINE 5-1.5MG /5 ML ORAL LIQD UNIT DOSE PO PRN ×2 (14:43→23:43)
--- NOTE | 2020-07-18 17:23 | Progress Note ---
Assessment and Plan Assessment and Plan - Patient Problems (1) Sepsis Current Visit: Yes Status: Acute Qualifiers: Acute respiratory failure type: with hypoxia Plan to address problem: Sepsis protocol: Chest x-ray, CBC, CMP, urinalysis, IV antibiotic therapy, monitor urine output every shift, strict I's/O, maintain mean arterial pressure greater than or equal to 65, blood culture, serial lactic acid level. Hold IV fluid in accordance with sepsis protocol due to suspected coronavirus infection. Care is being taken not to initiate fluid overload with resultant flash pulmonary edema. (2) COVID-19 virus infection Current Visit: Yes Status: Acute Plan to address problem: Slightly hypoxic on ambulation If patient is not desaturating will discharge tomorrow. Patient is desaturating on ambulation Will try to arrange for home oxygen and discharge (3) Acute hypoxemic respiratory failure Current Visit: Yes Status: Acute Plan to address problem: Sats dropped to 87% on exertion patient currently on 2 L nasal cannula oxygen (4) Bilateral pneumonia Current Visit: Yes Status: Acute Plan to address problem: Pneumonia protocol: Chest x-ray, CBC, CMP, IV antibiotic therapy, supplemental oxygen, nebulizer therapy, blood culture. (5) CHF (congestive heart failure) Current Visit: Yes Status: Acute Qualifiers: Heart failure type: systolic Heart failure chronicity: acute on chronic Qualified Code(s): I50.23 - Acute on chronic systolic (congestive) heart failure Plan to address problem: Strict I/O, monitor urine output every shift, daily weight, afterload reduction, blood pressure control, supplemental oxygen, supportive care. (6) Hypertension Current Visit: Yes Status: Acute Qualifiers: Hypertension type: essential hypertension Qualified Code(s): I10 - Essential (primary) hypertension Plan to address problem: Monitor blood pressure every shift, continue medical management. (7) Obesity hypoventilation syndrome Current Visit: Yes Status: Acute Plan to address problem: Supplemental oxygen, pulse oximetry, noninvasive positive pressure ventilation as clinically indicated, outpatient pulmonary follow-up for sleep study. (8) DVT prophylaxis Current Visit: Yes Status: Acute Plan to address problem: SCD to bilateral lower extremities while in bed, prophylactic anticoagulation (9) Advance care planning Current Visit: Yes Status: Acute Plan to address problem: Disease education conducted, patient is full code, prognosis discussed, care plan discussed, patient knowledges understanding and agreement with care plan, +30 minutes. Subjective Date of service: 12/18/20 Principal diagnosis: Covid pneumonia Interval history: 74 YO Female with Obesity Hypoventilation Syndrome, HTN, DM, CHF presents to ED for evaluation. Patient states that she has "not been feeling well" for the past 1 week with persistently worsening symptoms over the past 4 days. Patient states that she has experienced subjective fever, dry cough, shortness of breath, decreased exercise tolerance, nausea, multiple loose stools, loss of sense of smell, loss of sense of taste, fatigue, malaise, body aches, muscle aches. Patient transported to [facility] via private vehicle for further care and evaluation of the aforementioned symptoms. Patient seen and evaluated in the emergency department. All lab and imaging studies reviewed. Patient found to have a fever to 101.1 F, as well as a pulse oximetry of 87% with exertion on room air which is consistent with acute hypoxemic respiratory failure, tachycardia with heart rate of 128, and tachypneic with respiratory rate of 32. Patient underwent chest x-ray which revealed bilateral pneumonia. Patient admitted to medical floor and initiated on pneumonia protocol, sepsis protocol, as well as coronavirus protocol. Coronavirus PCR ordered in the emergency department and is pending at time of admission. Patient acknowledges subjective fever, but denies chest pain, palpitation, skin rash, recent ill contacts, trauma. Pt acknowledges known exposure to COVID-19 4 days ago. No medication listed at time of admission. No prior admission for review. Advanced care planning conducted in ED. 07/15/2020 Patient tested positive for Covid pneumonia 07/16/2020 Patient on high flow oxygen 07/17/2020 Patient on 2 L nasal cannula oxygen Desaturating to 87% on ambulation May arrange for home oxygen and discharge tomorrow 07/18/2020 Patient still desaturating on ambulation Comfortable on 2 L nasal cannula oxygen- will try to discharge her tomorrow if possible Objective - Constitutional Vitals: Vital Signs - 12hr 07/18/20 13:06 Temperature 98.2 F Pulse Rate 82 Respiratory 22 Rate Blood Pressure 132/67 O2 Sat by Pulse 91 Oximetry General appearance: Present: no acute distress, well-nourished - EENT Eyes: PERRL, EOM intact ENT: hearing intact, clear oral mucosa Ears: bilateral: normal - Neck Neck: supple, normal ROM - Respiratory Respiratory effort: normal Respiratory: bilateral: CTA - Breasts Breasts: normal - Cardiovascular Heart rate: 78 Rhythm: regular Heart Sounds: Present: S1 & S2. Absent: gallop, rub Extremities: pulses intact, No edema, normal color, Full ROM - Gastrointestinal General gastrointestinal: Present: soft, non-tender, non-distended, normal bowel sounds - Genitourinary Female genitourinary: normal - Integumentary Integumentary: clear, warm, dry - Musculoskeletal Musculoskeletal: 1, strength equal bilaterally - Neurologic Neurologic: moves all extremities - Psychiatric Psychiatric: memory intact, appropriate mood/affect, intact judgment & insight - Labs CBC & Chem 7: 07/15/20 05:34 07/14/20 09:32 Labs: Abnormal lab results 07/17/20 07/18/20 07/18/20 Range/Units 21:52 07:59 12:53 POC Glucose 145 H 174 H 164 H (70-105) mg/dL 07/18/20 Range/Units 16:54 POC Glucose 163 H (70-105) mg/dL
[2020-07-18] MEDS: REMDESIVIR 100 MG in SODIUM CHLORIDE 0.9% 250ML 250 ML IV SCH (23:10)
[2020-07-18] MEDS: PRAVASTATIN 20 MG TAB PO SCH (23:10)
[2020-07-18] MEDS: allopurinoL 300 MG TAB PO SCH (23:12)
[2020-07-18] MEDS: LATANOPROST 0.005% OPHTH SOLN 2.5 ML OU SCH (23:21)
[2020-07-19 06:46] LABS: Alanine Aminotransferase 74 units/L (7-56); Albumin 3.4 g/dL (3.9-5); Blood Urea Nitrogen 16 mg/dL (7-17); Calcium 10.1 mg/dL (8.4-10.2); Hemolysis Index 0
[2020-07-19 06:51] LABS: BUN/Creatinine Ratio 23
[2020-07-19] MEDS: metFORMIN 500 MG TAB PO SCH ×2 (08:39→17:32)
[2020-07-19] MEDS: SODIUM CHLORIDE 0.9% 50 ML IVPB IV SCH ×2 (10:36→21:11)
[2020-07-19] MEDS: ASCORBIC ACID 500 MG TAB PO SCH ×2 (10:37→21:12)
[2020-07-19] MEDS: METOPROLOL TARTRATE 100 MG TAB PO SCH ×2 (10:37→23:20)
[2020-07-19] MEDS: LOSARTAN 50 MG TAB PO SCH (10:37)
[2020-07-19] MEDS: TIMOLOL 0.5% OPHTH SOLN 5 ML OU SCH ×2 (10:37→21:14)
[2020-07-19] MEDS: HYDROcodone/HOMATROPINE 5-1.5MG /5 ML ORAL LIQD UNIT DOSE PO PRN ×2 (10:38→21:53)
[2020-07-19] MEDS: HEPARIN 5,000 UNIT/1 ML VIAL SUB-Q SCH ×2 (10:38→21:13)
[2020-07-19] MEDS: amLODIPine 5 MG TAB PO SCH ×3 (10:38→23:20)
[2020-07-19] MEDS: FUROSEMIDE 40 MG TAB PO SCH (10:38)
[2020-07-19] MEDS: POTASSIUM CHLORIDE ER 10 MEQ TAB PO SCH (10:38)
[2020-07-19] MEDS: FAMOTIDINE 20 MG TAB PO SCH ×2 (10:38→21:11)
[2020-07-19] MEDS: CHOLECALCIFEROL (VIT D3) 5,000 UNIT TAB PO SCH (10:40)
[2020-07-19] MEDS: REMDESIVIR 100 MG in SODIUM CHLORIDE 0.9% 250ML 250 ML IV SCH (21:06)
[2020-07-19] MEDS: PRAVASTATIN 20 MG TAB PO SCH (21:10)
[2020-07-19] MEDS: allopurinoL 300 MG TAB PO SCH (21:12)
[2020-07-19] MEDS: LATANOPROST 0.005% OPHTH SOLN 2.5 ML OU SCH (21:15)
[2020-07-19] MEDS: dexAMETHasone 4 MG/ML VIAL IV SCH (23:31)
[2020-07-20 07:29] LABS: Alanine Aminotransferase 106 units/L (7-56); Albumin 3.4 g/dL (3.9-5); Blood Urea Nitrogen 17 mg/dL (7-17); Calcium 10.2 mg/dL (8.4-10.2); Hemolysis Index 449
[2020-07-20 07:30] LABS: BUN/Creatinine Ratio 24
[2020-07-20] MEDS: metFORMIN 500 MG TAB PO SCH (08:48)
[2020-07-20 10:45] VITALS: BP 142/68
[2020-07-20] MEDS: HEPARIN 5,000 UNIT/1 ML VIAL SUB-Q SCH (10:57)
[2020-07-20] MEDS: FAMOTIDINE 20 MG TAB PO SCH (10:58)
[2020-07-20] MEDS: POTASSIUM CHLORIDE ER 10 MEQ TAB PO SCH (10:58)
[2020-07-20] MEDS: FUROSEMIDE 40 MG TAB PO SCH (10:58)
[2020-07-20] MEDS: ASCORBIC ACID 500 MG TAB PO SCH (10:58)
[2020-07-20] MEDS: CHOLECALCIFEROL (VIT D3) 5,000 UNIT TAB PO SCH (10:58)
[2020-07-20] MEDS: amLODIPine 5 MG TAB PO SCH (10:58)
[2020-07-20] MEDS: LOSARTAN 50 MG TAB PO SCH (10:58)
[2020-07-20] MEDS: TIMOLOL 0.5% OPHTH SOLN 5 ML OU SCH (10:59)
[2020-07-20] MEDS: METOPROLOL TARTRATE 100 MG TAB PO SCH (10:59)
--- NOTE | 2020-07-20 15:05 | Progress Note ---
Assessment and Plan Assessment and Plan - Patient Problems (1) Sepsis Current Visit: Yes Status: Acute Qualifiers: Acute respiratory failure type: with hypoxia Plan to address problem: Sepsis protocol: Chest x-ray, CBC, CMP, urinalysis, IV antibiotic therapy, monitor urine output every shift, strict I's/O, maintain mean arterial pressure greater than or equal to 65, blood culture, serial lactic acid level. Hold IV fluid in accordance with sepsis protocol due to suspected coronavirus infection. Care is being taken not to initiate fluid overload with resultant flash pulmonary edema. (2) COVID-19 virus infection Current Visit: Yes Status: Acute Plan to address problem: Slightly hypoxic on ambulation If patient is not desaturating will discharge tomorrow. Patient is desaturating on ambulation Will try to arrange for home oxygen and discharge Patient on minimal requirements for oxygen We will recheck her tomorrow and if necessary we will discharge her on home oxygen (3) Acute hypoxemic respiratory failure Current Visit: Yes Status: Acute Plan to address problem: Sats dropped to 87% on exertion patient currently on 2 L nasal cannula oxygen (4) Bilateral pneumonia Current Visit: Yes Status: Acute Plan to address problem: Pneumonia protocol: Chest x-ray, CBC, CMP, IV antibiotic therapy, supplemental oxygen, nebulizer therapy, blood culture. (5) CHF (congestive heart failure) Current Visit: Yes Status: Acute Qualifiers: Heart failure type: systolic Heart failure chronicity: acute on chronic Qualified Code(s): I50.23 - Acute on chronic systolic (congestive) heart failure Plan to address problem: Strict I/O, monitor urine output every shift, daily weight, afterload reduction, blood pressure control, supplemental oxygen, supportive care. (6) Hypertension Current Visit: Yes Status: Acute Qualifiers: Hypertension type: essential hypertension Qualified Code(s): I10 - Es sential (primary) hypertension Plan to address problem: Monitor blood pressure every shift, continue medical management. (7) Obesity hypoventilation syndrome Current Visit: Yes Status: Acute Plan to address problem: Supplemental oxygen, pulse oximetry, noninvasive positive pressure ventilation as clinically indicated, outpatient pulmonary follow-up for sleep study. (8) DVT prophylaxis Current Visit: Yes Status: Acute Plan to address problem: SCD to bilateral lower extremities while in bed, prophylactic anticoagulation (9) Advance care planning Current Visit: Yes Status: Acute Plan to address problem: Disease education conducted, patient is full code, prognosis discussed, care plan discussed, patient knowledges understanding and agreement with care plan, +30 minutes. Subjective Date of service: 07/19/20 Principal diagnosis: Covid pneumonia Interval history: 74 YO Female with Obesity Hypoventilation Syndrome, HTN, DM, CHF presents to ED for evaluation. Patient states that she has "not been feeling well" for the past 1 week with persistently worsening symptoms over the past 4 days. Patient states that she has experienced subjective fever, dry cough, shortness of breath, decreased exercise tolerance, nausea, multiple loose stools, loss of sense of smell, loss of sense of taste, fatigue, malaise, body aches, muscle aches. Patient transported to [facility] via private vehicle for further care and evaluation of the aforementioned symptoms. Patient seen and evaluated in the e mergency department. All lab and imaging studies reviewed. Patient found to have a fever to 101.1 F, as well as a pulse oximetry of 87% with exertion on room air which is consistent with acute hypoxemic respiratory failure, tachycardia with heart rate of 128, and tachypneic with respiratory rate of 32. Patient underwent chest x-ray which revealed bilateral pneumonia. Patient admitted to medical floor and initiated on pneumonia protocol, sepsis protocol, as well as coronavirus protocol. Coronavirus PCR ordered in the emergency department and is pending at time of admission. Patient acknowledges subjective fever, but denies chest pain, palpitation, skin rash, recent ill contacts, trauma. Pt acknowledges known exposure to COVID-19 4 days ago. No medication listed at time of admission. No prior admission for review. Advanced care planning conducted in ED. 07/15/2020 Patient tested positive for Covid pneumonia 07/16/2020 Patient on high flow oxygen 07/17/2020 Patient on 2 L nasal cannula oxygen Desaturating to 87% on ambulation May arrange for home oxygen and discharge tomorrow 07/18/2020 Patient still desaturating on ambulation Comfortable on 2 L nasal cannula oxygen- will try to discharge her tomorrow if possible 07/19/2020 Patient on 2 L nasal cannula oxygen Objective - Constitutional Vitals: Vital Signs - 12hr 07/20/20 07/20/20 07/20/20 04:36 10:00 10:17 Temperature 98.5 F 97.1 F L Pulse Rate 70 73 Respiratory 20 18 Rate Blood Pressure 166/77 142/68 O2 Sat by Pulse 93 95 94 Oximetry General appearance: Present: no acute distress, well-nourished - EENT Eyes: PERRL, EOM intact ENT: hearing intact, clear oral mucosa Ears: bilateral: normal - Neck Neck: supple, normal ROM - Respiratory Respiratory effort: normal Respiratory: bilateral: CTA - Breasts Breasts: normal - Cardiovascular Heart rate: 78 Rhythm: regular Heart Sounds: Present: S1 & S2. Absent: gallop, rub Extremities: pulses intact, No edema, normal color, Full ROM - Gastrointestinal General gastrointestinal: Present: soft, non-tender, non-distended, normal bowel sounds - Genitourinary Female genitourinary: normal - Integumentary Integumentary: clear, warm, dry - Musculoskeletal Musculoskeletal: 1, strength equal bilaterally - Neurologic Neurologic: moves all extremities - Psychiatric Psychiatric: memory intact, appropriate mood/affect, intact judgment & insight - Labs CBC & Chem 7: 07/15/20 05:34 07/20/20 06:01 Labs: Abnormal lab results 07/19/20 07/19/20 07/20/20 Range/Units 16:28 23:15 06:01 Glucose 163 H (65-100) mg/dL POC Glucose 159 H 137 H (70-105) mg/dL AST 100 H (5-40) units/L ALT 106 H (7-56) units/L Albumin 3.4 L (3.9-5) g/dL 07/20/20 07/20/20 Range/Units 07:36 10:07 Glucose (65-100) mg/dL POC Glucose 167 H 219 H (70-105) mg/dL AST (5-40) units/L ALT (7-56) units/L Albumin (3.9-5) g/dL
--- NOTE | 2020-07-20 15:12 | Discharge Summary ---
Providers - Providers Date of Admission: 07/14/20 12:33 Date of discharge: 07/20/20 Attending physician: MIGUELITO GALVIN 07/16/20 00:27 Consult to Physician [CONS] Routine Comment: Consulting Provider: MONSE MORALES Physician Instructions: Reason For Exam: Covid pneumonia Primary care physician: FÉLIX LOZADA MD Hospitalization Condition: Stable Hospital course: Subjective Date of service: 07/20/20 Principal diagnosis: Covid pneumonia Interval history: 74 YO Female with Obesity Hypoventilation Syndrome, HTN, DM, CHF presents to ED for evaluation. Patient states that she has "not been feeling well" for the past 1 week with persistently worsening symptoms over the past 4 days. Patient states that she has experienced subjective fever, dry cough, shortness of breath, decreased exercise tolerance, nausea, multiple loose stools, loss of sense of smell, loss of sense of taste, fatigue, malaise, body aches, muscle aches. Patient transported to [facility] via private vehicle for further care and evaluation of the aforementioned symptoms. Patient seen and evaluated in the emergency department. All lab and imaging studies reviewed. Patient found to have a fever to 101.1 F, as well as a pulse oximetry of 87% with exertion on room air which is consistent with acute hypoxemic respiratory failure, tachycardia with heart rate of 128, and tachypneic with respiratory rate of 32. Patient underwent chest x-ray which revealed bilateral pneumonia. Patient admitted to medical floor and initiated on pneumonia protocol, sepsis protocol, as well as coronavirus protocol. Coronavirus PCR ordered in the emergency department and is pending at time of admission. Patient acknowledges subjective fever, but denies chest pain, palpitation, skin rash, recent ill contacts, trauma. Pt acknowledges known exposure to COVID-19 4 days ago. No medication listed at time of admission. No prior admission for review. Advanced care planning conducted in ED. 07/15/2020 Patient tested positive for Covid pneumonia 07/16/2020 Patient on high flow oxygen 07/17/2020 Patient on 2 L nasal cannula oxygen Desaturating to 87% on ambulation May arrange for home oxygen and discharge tomorrow 07/18/2020 Patient still desaturating on ambulation Comfortable on 2 L nasal cannula oxygen- will try to discharge her tomorrow if possible 07/19/2020 Patient on 2 L nasal cannula oxygen 07/20/2020 Room air saturation 90% after walking Patient to be discharged No need for home oxygen Assessment and Plan - Patient Problems (1) Sepsis Current Visit: Yes Status: Acute Qualifiers: Acute respiratory failure type: with hypoxia Plan to address problem: Improved (2) COVID-19 virus infection Current Visit: Yes Status: Acute Plan to address problem: Improved ambulatory oxygen is 90% (3) Acute hypoxemic respiratory failure Current Visit: Yes Status: Acute Plan to address problem: Sats dropped to 87% on exertion patient currently on 2 L nasal cannula oxygen (4) Bilateral pneumonia Current Visit: Yes Status: Acute Plan to address problem: Finish the course of antibiotics (5) CHF (congestive heart failure) Current Visit: Yes Status: Acute Qualifiers: Heart failure type: systolic Heart failure chronicity: acute on chronic Qualified Code(s): I50.23 - Acute on chronic systolic (congestive) heart failure Plan to address problem: No shortness of breath Asked to lose weight (6) Hypertension Current Visit: Yes Status: Acute Qualifiers: Hypertension type: essential hypertension Qualified Code(s): I10 - Ess ential (primary) hypertension Plan to address problem: Monitor blood pressure every shift, continue medical management. (7) Obesity hypoventilation syndrome Current Visit: Yes Status: Acute Plan to address problem: Supplemental oxygen, pulse oximetry, noninvasive positive pressure ventilation as clinically indicated, outpatient pulmonary follow-up for sleep study. Disposition: DC-01 TO HOME OR SELFCARE Time spent for discharge: 32 minutes Core Measure Documentation - Palliative Care Palliative Care/ Comfort Measures: Not Applicable - Core Measures Any of the following diagnoses?: none Exam - Constitutional Vitals: Temp Pulse Resp BP Pulse Ox 97.1 F L 73 18 142/68 94 07/20/20 10:17 07/20/20 10:17 07/20/20 10:17 07/20/20 10:17 07/20/20 10:17 General appearance: Present: no acute distress, well-nourished - EENT Eyes: Present: PERRL ENT: hearing intact, clear oral mucosa - Neck Neck: Present: supple, normal ROM - Respiratory Respiratory effort: normal Respiratory: bilateral: CTA - Cardiovascular Heart rate: 78 Rhythm: regular Heart Sounds: Present: S1 & S2. Absent: rub, click - Extremities Extremities: pulses symmetrical, No edema Peripheral Pulses: within normal limits - Abdominal General gastrointestinal: Present: soft, non-tender, non-distended, normal bowel sounds Female genitourinary: Present: normal - Integumentary Integumentary: Present: clear, warm, dry - Musculoskeletal Musculoskeletal: gait normal, strength equal bilaterally - Psychiatric Psychiatric: appropriate mood/affect, intact judgment & insight - Neurologic Neurologic: CNII-XII intact, moves all extremities Plan Activity: no restrictions Diet: regular Follow up with: YANA FRENCH MD [Staff Physician] - 7 Days
== END 2020-07-20 16:39 | disposition home or self-care (01) | DRG 871 ==
LOC: ED 07:38 → 3A 12:33
PROVIDERS: ADMIT Internal Medicine; ATTEND Internal Medicine
PROC: XW033E5 Introduction of Remdesivir Anti-infective into Peripheral Vein, Percutaneous Approach, New Technology Group 5 (ICD-10-PCS; principal; 2020-07-16)
DX: A41.89 Other specified sepsis (principal); U07.1 COVID-19; J12.89 Other viral pneumonia; I50.23 Acute on chronic systolic (congestive) heart failure; J96.01 Acute respiratory failure with hypoxia; E66.2 Morbid (severe) obesity with alveolar hypoventilation; H40.9 Unspecified glaucoma; R65.20 Severe sepsis without septic shock; I11.0 Hypertensive heart disease with heart failure; E11.9 Type 2 diabetes mellitus without complications; Z79.899 Other long term (current) drug therapy; Z79.891 Long term (current) use of opiate analgesic; Z79.84 Long term (current) use of oral hypoglycemic drugs; Z83.3 Family history of diabetes mellitus; Z82.49 Family history of ischemic heart disease and other diseases of the circulatory system; Z68.33 Body mass index [BMI] 33.0-33.9, adult
CPT/HCPCS: 36415; 71046; 80053; 80076; 82140; 82728; 82803; 82962; 83615; 84145; 85025; 85379; 85652; 86140; 87040; 94760; 96365; 96376; G0378; A9270-GY; J0456; J0696; J1100; J1644; J2405; J2920; J7050; U0003